=== PATIENT | male | born 1995 | race Caucasian/White ===

== ENCOUNTER 2017-03-14 00:45 | Emergency (ER) | payer BC ==
[~2017-03-14] VITALS: Ht 177.8 cm; Wt 81.8 kg
[2017-03-14 00:52] VITALS: TEMP 36.7; Ht 177.8 cm; Wt 81.8 kg
[2017-03-14] MEDS ORDERED: DiphenhydrAMINE HCL 50 MG/ML VIAL IM STA (01:14)
[2017-03-14] MEDS ORDERED: DEXAMETHASONE SOD INJ 4 MG/ML VIAL IM ONE (01:15)
[2017-03-14] MEDS ORDERED: ERYTHROMYCIN OP OINT 5 MG/GM 3.5 GM TUBE OP ONE (02:30)
[2017-03-14] MEDS ORDERED: CLINDAMYCIN 150MG HOME PACK PO ONE (02:30)
[2017-03-14] MEDS ORDERED: CLIN300C2 PO (02:33)
--- NOTE | 2017-03-14 02:33 | EMERGENCY ROOM VISIT NOTE ---
History First contact with patient: 00:57 Chief Complaint: EYE ASSESSMENT Stated Complaint: SWOLLEN EYE History of Present Illness The patient is a 22 year old male who presents to the Emergency Room with complaints of swelling of his left eye. The patient states that approximately 1.5 hours ago, he was outside watching a movie when he felt a bug fly into his eye. He states that the eye became swollen and red almost immediately afterward. He denies any pain or itching of the eye. He states his vision is normal. He does not wear glasses or contacts. He has not taken any medication at home for symptoms. He denies any history of similar symptoms. Review of Systems A complete 10 point review of systems was reviewed with the patient with pertinent positives and negatives as per history of present illness. All else were negative. Social History Smoking Status: Never Smoker Current/Historical Medications Scheduled Clindamycin Hcl (Cleocin), 300 MG PO QID Allergies Coded Allergies: No Known Allergies (Unverified , 03/14/17) Physical Exam Vital Signs Date Time Temp Pulse Resp B/P (MAP) Pulse Ox O2 Delivery O2 Flow Rate FiO2 03/14/17 02:41 98 18 142/83 100 03/14/17 00:52 36.7 95 18 152/91 100 Room Air Right Eye Acuity: 20/25 Left Eye Acuity: 20/30 Physical Exam VITALS: Vitals are noted on the nurse's note and reviewed by myself. Vital signs stable. GENERAL: This is a 22-year-old male, in no acute distress, nondiaphoretic, well- developed well-nourished. SKIN: The skin was without rashes. EARS: External auditory canals clear, tympanic membranes pearly sol without erythema or effusion bilaterally. EYES: There is periorbital edema and mild erythema. There is chemosis. There is no conjunctival injection. Pupils equal round and reactive to light and accommodation. Extraocular movements intact and nonpainful. There is no uptake of fluorescein stain on UV light examination. MOUTH: Mucous membranes moist. HEART: Regular rate and rhythm without murmurs gallops or rubs. LUNGS: Clear to auscultation bilaterally without wheezes, rales or rhonchi. NEURO: Patient was alert and oriented to person place and time. Medical Decision & Procedures Medications Administered Medications (Trade) Dose Ordered Sig/Chris Route Start Time Stop Time Status Last Admin Dose Admin Diphenhydramine HCl (Benadryl Inj) 25 mg NOW STAT IM 03/14/17 01:14 03/14/17 01:18 DC 03/14/17 01:25 25 MG Dexamethasone Sodium Phosphate (Decadron Inj) 10 mg NOW ONCE IM 03/14/17 01:15 03/14/17 01:18 DC 03/14/17 01:25 10 MG Clindamycin HCl (Cleocin 150MG Home Pack) 1 homepack UD ONCE PO 03/14/17 02:30 03/14/17 02:31 DC 03/14/17 02:41 1 HOMEPACK Erythromycin (Erythromycin Oph Oint) 1 appln NOW ONCE OP 03/14/17 02:30 03/14/17 02:31 DC 03/14/17 02:41 1 APPLN Medical Decision Differential diagnosis includes preseptal cellulitis, orbital cellulitis, allergic reaction, corneal abrasion, among others. The patient was evaluated as above. Exam appears consistent with a preseptal cellulitis, although the history does not fit with the typical presentation. Corneal exam is unremarkable. Visual acuity was normal. Patient has normal EOMs and I do not suspect orbital cellulitis. He is afebrile. He did not respond to Decadron and Benadryl. The patient will be treated with clindamycin and erythromycin for possible preseptal cellulitis. He was instructed to see his primary care provider or an eye doctor for a recheck this week. He was encouraged to return if he has worsening symptoms. He verbalized understanding of my assessment and treatment plan and was discharged home in good condition. Impression Primary Impression: Preseptal cellulitis of left eye Departure Information Dispostion Home / Self-Care Condition GOOD Prescriptions Clindamycin Hcl (CLEOCIN) 300 Mg Cap 300 MG PO QID for 7 Days, #28 CAP Prov: Tyra Rondon ., XAVI 03/14/17 Referrals No Doctor, Assigned (PCP) Patient Instructions My [facility] Additional Instructions You have been prescribed Erythromycin Opthalmic ointment. This is an antibiotic ointment which will help prevent an infection from developing in your affected eye. You should apply a 1 cm ribbon of the ointment to the lower part of the affected eye up to 6 times per day for the next 10 days. You were prescribed clindamycin to be taken 4 times daily as prescribed. This is an antibiotic. All antibiotics have the potential to cause diarrhea. Stop this medication and contact a medical provider if you were to develop any significant adverse side effects including: wheezing, shortness of breath, passing out, vomiting, or a diffuse rash. Always take antibiotics as directed and COMPLETE the ENTIRE course regardless of the improvement of your symptoms. You should be rechecked by her primary care provider this week. Return to the emergency department with worsening swelling, fevers, difficulty moving her eyes, vision changes or any other new/concerning symptoms.
[2017-03-14 02:41] VITALS: BP 142/83; PULSE 98; O2SAT 100
== END 2017-03-14 02:37 | disposition home or self-care (01) ==
LOC: C.EDB 00:46 → C.EDC 02:37
DX: L03.213 Periorbital cellulitis (principal)